=== PATIENT | male | born 1995 | race American Indian/Alaskan Native ===

== ENCOUNTER 2019-05-26 21:01 | Emergency (ER) | payer SELFPAY ==
--- NOTE | 2019-05-27 05:12 | Emergency Department Report ---
Chief Complaint: Dental/Oral Stated Complaint: CYST ON FACE Time Seen by Provider: 05/27/19 04:38 - HPI History of Present Illness: This is a 23-year-old male who presents the ED complaining of small bump on the left side of his cheek that is gotten bigger causing him to have some jaw pain. Patient states he first noticed this about 3 months ago. Patient states since then it is getting a bit bigger and more noticeable. He denies injury or trauma to the cheeks. Dental pain, fever, - ROS Review of Systems: As noted in HPI - Exam Vital Signs: Vital Signs 05/26/19 21:05 Temperature 98.2 F Pulse Rate 65 Respiratory 18 Rate Blood Pressure 115/70 O2 Sat by Pulse 100 Oximetry Physical Exam: GENERAL: Alert and oriented x3, no apparent distress, Normal Gait, atraumatic. HEAD: Head is normocephalic and a-traumatic. EYES: Extra ocular muscles are intact. Pupils are equal, round, and reactive to light and accommodation. SKIN: Warm and dry, No lesions, No ulceration or induration present. Lipoma 2 cm in diameter, nontender to palpation noted to the left cheek MSE screening note: Focused history and physical exam performed. Due to findings the following was ordered: ED Disposition for MSE Clinical Impression: Lipoma of skin, face Disposition: Z- MED SCREENING EXAM-LEFT Is pt being admited?: No Does the pt Need Aspirin: No Condition: Stable Instructions: Lipoma (ED) Additional Instructions: Make sure to follow up with the primary care physician as discussed. Take all your medications as you've been prescribed. If you have any worsening symptoms or develop new symptoms please return to ED immediately. Referrals: YINKA RAMIREZ MD [Primary Care Provider] - 3-5 Days [facility] [Outside] - 3-5 Days [facility] [Outside] - 3-5 Days [facility] [Provider Group] - 3-5 Days [facility] [Provider Group] - 3-5 Days SANDRA GE MD [Staff Physician] - 3-5 Days Forms: Work/School Release Form(ED) Time of Disposition: 05:11
[2019-05-27 05:26] VITALS: BP 115/66
== END 2019-05-27 05:27 | disposition left against medical advice (07) ==
LOC: ED 21:01
DX: D17.0 Benign lipomatous neoplasm of skin and subcutaneous tissue of head, face and neck (principal)
CPT/HCPCS: 99282

== ENCOUNTER 2020-02-18 23:04 | Emergency (ER) | payer SELFPAY ==
--- NOTE | 2020-02-19 01:04 | Emergency Department Report ---
Chief Complaint: Urogenital-Male Stated Complaint: PUBIC LICE - HPI History of Present Illness: 24-year-old -[place] male presents to the emergency room for rash on his pubic area x1 week. Patient states that it is painful. Patient has not taken anything for pain management. Patient states he did shave. Now he has little bumps that are painful. Patient denies any fever chills no nausea no vomiting. - Exam Physical Exam: Patient is alert and oriented x3 no acute distress nontoxic in appearance small multiple pustular lesions on the mons pubis with no lymphadenopathy of the groin area. Patient is ambulatory without difficulties MSE screening note: Focused history and physical exam performed. Due to findings the following was ordered: 24-year-old -[place] male presents to the emergency room for rash on his pubic area x1 week. Patient states that it is painful. Patient has not taken anything for pain management. Patient states he did shave. Now he has little bumps that are painful. Patient denies any fever chills no nausea no vomiting. Discussed with patient he can follow-up at our urgent care clinic or [facility]. ED Disposition for MSE Disposition: MED SCREENING EXAM-LEFT Is pt being admited?: No Does the pt Need Aspirin: No Condition: Stable Referrals: PRIMARY CARE, [Primary Care Provider] - 3-5 Days [facility] [Provider Group] - 3-[address] [facility] [Outside] - 3-5 Days [facility] [Outside] - 3-5 Days
== END 2020-02-19 01:00 | disposition left against medical advice (07) ==
LOC: ED 23:04
DX: R21 Rash and other nonspecific skin eruption (principal); Z53.21 Procedure and treatment not carried out due to patient leaving prior to being seen by health care provider